=== PATIENT | female | born 1995 | race African-American/Black ===

== ENCOUNTER 2017-01-01 07:52 | Emergency (ER) | payer SELFPAY ==
--- NOTE | 2017-01-01 08:07 | ED Physician Documentation ---
General Adult - HISTORIAN Historian: patient - HPI Stated Complaint: rash Chief Complaint: General Adult Onset: days ago (2) Timing: still present Severity: moderate Further Comments: yes (Pt is a 21 yo female with a rash on face and extremities for 3 days. Pt just started a new job at [employer] last week. 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 Pt does not know the names of the chemicals that are used on these parts. The rash is at times pruritic. Pt has taken Benadryl, but to no effect.) - ROS CONST: no problems EYES/ENT: none CVS/RESP: none GI/: none MS/SKIN/LYMPH: rash - PAST HX Past History: none Allergies/Adverse Reactions: Allergies Allergy/AdvReac Type Severity Reaction Status Date / Time No Known Allergies Allergy Unverified 01/01/17 08:09 Home Medications: Ambulatory Orders Medication Instructions Recorded NK [NK] 01/01/17 - SOCIAL HX Smoking History: non-smoker - FAMILY HX Family History: No - REVIEWED ASSESSMENTS Nursing Assessment Reviewed: Yes Vitals Reviewed: Yes Progress - Progress Progress: Rx Prednisone 10 mg. Take 5 tablets by mouth at one time each day for two days ; then take 4 tablets by mouth each day for 2 days; then take 3 tablets by mouth each day for 2 days; then take 2 tablets by mouth each day for 2 days; then take 1 tablet by mouth each day for 2 days; then stop. General Adult Physical Exam - PHYSICAL EXAM GENERAL APPEARANCE: no distress EENT: eye inspection normal, pharynx normal NECK: normal inspection, supple RESPIRATORY: no resp distress, chest non-tender, breath sounds normal CVS: reg rate & rhythm, heart sounds normal BACK: normal inspection SKIN: other (numerous small papules on forehead, face, and upper extremities) EXTREMITIES: non-tender, normal range of motion, no evidence of injury NEURO: oriented X3, motor nml, sensation nml Discharge Clincal Impression: Rash Referrals: Primary Doctor,No [Primary Care Provider] - Home Medications: Ambulatory Orders NK [NK] 01/01/17 Condition: Good Disposition: 01 HOME, SELF-CARE Decision to Admit: NO Decision Time: 08:15
[2017-01-01 08:28] VITALS: BP 120/70
== END 2017-01-01 08:24 | disposition home or self-care (01) ==
LOC: ED 07:52
DX: R21 Rash and other nonspecific skin eruption (principal)
CPT/HCPCS: 99283